=== PATIENT | female | born 1940 | race Caucasian/White ===

== ENCOUNTER 2017-06-10 18:08 | Inpatient (IN) | payer MEDICARE, MEDICAID ==
[2017-06-10] MEDS ORDERED: Aspirin 325 mg EC Tablets PO STA (18:29)
[2017-06-10] MEDS ORDERED: Aluminum Hydroxide/Magnesium Hydroxide Susp (30 mL) PO STA (18:29)
--- NOTE | 2017-06-10 18:30 | C.PDOC ---
History Of Present Illness <Sailaja Robledo - Last Filed: 06/10/17 19:02> <Thom Mclaughlin - Last Filed: 06/10/17 19:36> 77 yr old F, in ED with son who translates from [place], c/o epigastric pain and nausea x 1 since 4 pm today. Pt states she had a non traumatic cramp of right shoulder in AM, now completely resolved. (Sailaja Robledo) History Per: Patient, Family History/Exam Limitations: language barrier (son) Onset/Duration Of Symptoms: Sudden Onset (4 pmd) Current Symptoms Are (Timing): Better <Sailaja Robledo - Last Filed: 06/10/17 19:02> <Thom Mclaughlin - Last Filed: 06/10/17 19:36> Time Seen by Provider: 06/10/17 18:28 Chief Complaint (Nursing): Chest Pain Past Medical History Reviewed: Historical Data, Nursing Documentation, Vital Signs - Medical History PMH: Diabetes (?), HTN, Chronic Kidney Disease Surgical History: CABG Other Surgeries: valve replacement Family History: States: Unknown Family Hx - Social History Hx Alcohol Use: No Hx Substance Use: No - Immunization History Hx Tetanus Toxoid Vaccination: No Hx Influenza Vaccination: No Hx Pneumococcal Vaccination: No <Sailaja Robledo - Last Filed: 06/10/17 19:02> Vital Signs: Last Vital Signs Temp 99.1 F 06/10/17 18:32 Pulse 97 H 06/10/17 18:34 Resp 16 06/10/17 18:34 BP 187/72 H 06/10/17 18:34 Pulse Ox 100 06/10/17 19:03 Review Of Systems Constitutional: Negative for: Fever Cardiovascular: Negative for: Chest Pain, Palpitations Respiratory: Negative for: Cough, Shortness of Breath Gastrointestinal: Positive for: Nausea, Vomiting, Abdominal Pain (epigastric) Musculoskeletal: Negative for: Neck Pain Neurological: Negative for: Weakness, Numbness <Sailaja Robledo - Last Filed: 06/10/17 19:02> Physical Exam - Physical Exam Appears: Non-toxic, No Acute Distress Skin: Normal Color, Warm Head: Atraumatic, Normacephalic Eye(s): bilateral: Normal Inspection Ear(s): Bilateral: Normal Nose: Normal Oral Mucosa: Moist Lips: Normal Appearing Throat: Normal Neck: Normal Chest: Symmetrical Cardiovascular: Rhythm Regular Respiratory: Normal Breath Sounds, No Rales, No Rhonchi Gastrointestinal/Abdominal: Soft, Tenderness (mild epigastric) Back: Normal Inspection Extremity: Normal ROM <Sailaja Robledo - Last Filed: 06/10/17 19:02> ED Course And Treatment ECG: Interpreted By Me ECG Rhythm: Sinus Rhythm ECG Interpretation: No Acute Changes Rate From EC O2 Sat by Pulse Oximetry: 100 Pulse Ox Interpretation: Normal - Radiology CXR: Interpreted by Me, Viewed By Me CXR Interpretation: Yes: No Acute Disease. No: Infiltrates <Sailaja Robledo - Last Filed: 06/10/17 19:02> - Laboratory Results Result Diagrams: 06/10/17 18:47 06/10/17 18:47 - Radiology CXR: Interpreted by Me, Viewed By Me CXR Interpretation: Yes: Other (cabg, mild venous congestion). No: Infiltrates , Fracture, Pnemothorax <Thom Mclaughlin - Last Filed: 06/10/17 19:36> Disposition - Disposition Disposition Time: 19:02 <Sailaja Robledo - Last Filed: 06/10/17 19:02> <Thom Mclaughlin - Last Filed: 06/10/17 19:36> - Disposition Condition: STABLE Forms: [employer] (K[place]z) - Clinical Impression Clinical Impression: Epigastric pain, Chest pain Physician Patient Turnover Patient Signed Over To: Thom Mclaughlin Handoff Comments: epigastric pain pending labs <Sailaja Robledo Last Filed: 06/10/17 19:02>
[2017-06-10] MEDS ORDERED: Aspirin 325 mg EC Tablets PO ONE (18:52)
[2017-06-10] MEDS ORDERED: Aluminum Hydroxide/Magnesium Hydroxide Susp (30 mL) ONE (18:53)
[2017-06-10 18:59] LABS: CHLORIDE 103 mmol/L (98-107); SODIUM 138 mmol/L (132-148)
[2017-06-10 19:00] LABS: POTASSIUM 4.7 mmol/L (3.6-5.2)
[2017-06-10 19:02] LABS: ALB/GLOB RATIO 1.5 (1.0-2.1); ALKALINE PHOSPHATASE 74 U/L (38-126); ALT/SGPT 31 U/L (9-52); AST/SGOT 20 U/L (14-36); BASO # 0.1 K/uL (0.0-0.2); BASO % 0.9 % (0.0-2.0); BILIRUBIN,TOTAL 0.6 mg/dL (0.2-1.3); BLOOD UREA NITROGEN 33 mg/dL (7-17); CARBON DIOXIDE 22 mmol/L (22-30); EOS # 0.3 K/uL (0.0-0.7); EOS % 4.1 % (0.0-4.0); GFR AFRICAN-AMERICAN > 60; GLUCOSE,RANDOM 95 mg/dL (65-105); HEMATOCRIT 35.8 % (34.0-47.0); LYMPH # 1.4 K/uL (1.0-4.3); LYMPH % 17.7 % (20.0-40.0); MEAN CELL VOLUME 86.5 fL (81.0-99.0); MEAN CORPUSCULAR HEMOGLOBIN 28.8 pg (27.0-31.0); MEAN CORPUSCULAR HGB CONC 33.3 g/dL (33.0-37.0); MEAN PLATELET VOLUME 9.4 fL (7.2-11.7); MONO # 0.7 K/uL (0.0-0.8); MONO % 9.1 % (0.0-10.0); RED CELL DISTRIBUTION WIDTH 13.5 % (11.5-14.5); TOTAL PROTEIN 7.5 g/dL (6.3-8.3); WHITE BLOOD COUNT 7.9 K/uL (4.8-10.8)
[2017-06-10 19:03] LABS: CALCIUM 9.1 mg/dl (8.6-10.4)
[2017-06-10 20:55] VITALS: BP 162/62; PULSE 74; RESP 20; TEMP 98.8; O2SAT 99
--- NOTE | 2017-06-11 08:52 | RAD ---
PROCEDURE: CHEST RADIOGRAPH, 1 VIEW HISTORY: chest pain COMPARISON: 05/23/2017. FINDINGS: LUNGS: The lungs are clear. PLEURA: No pneumothorax or pleural fluid seen. CARDIOVASCULAR: There is mild cardiomegaly. Status post CABG. OSSEOUS STRUCTURES: No significant abnormalities. VISUALIZED UPPER ABDOMEN: Normal. OTHER FINDINGS: Surgical clips in the right upper quadrant are related to prior cholecystectomy.. IMPRESSION: No active pulmonary disease.
--- NOTE | 2017-06-12 13:54 | CARD ---
APPROVED REPORT EKG Measurement Heart [id number] <Conclusion> Normal sinus rhythm Minimal voltage criteria for LVH, may be normal variant Borderline ECG
== END 2017-06-11 05:37 | disposition left against medical advice (07) | DRG 313 ==
LOC: C.ER 18:08 → C.9E 20:25 → MERGE 20:25
PROVIDERS: ADMIT Internal Medicine; ATTEND Internal Medicine
DX: R07.9 Chest pain, unspecified (principal); E11.22 Type 2 diabetes mellitus with diabetic chronic kidney disease; R06.02 Shortness of breath; R10.13 Epigastric pain; I12.9 Hypertensive chronic kidney disease with stage 1 through stage 4 chronic kidney disease, or unspecified chronic kidney disease; N18.9 Chronic kidney disease, unspecified; Z95.1 Presence of aortocoronary bypass graft; Z95.2 Presence of prosthetic heart valve